=== PATIENT | male | born 1980 | race Hispanic/Latino ===

== ENCOUNTER 2023-10-08 02:45 | Emergency (ER) | payer SELFPAY ==
[2023-10-08] MEDS ORDERED: Ketorolac Tromethamine 30 MG (1 mL) VIAL ONE (03:28)
[2023-10-08] MEDS ORDERED: Lactated Ringer's 1,000 ML ONE (03:28)
[2023-10-08] MEDS ORDERED: Dicyclomine 20 MG/2 ML VIAL ONE (03:28)
[2023-10-08] MEDS ORDERED: Ondansetron PF 4 MG/2 ML Vial ONE (03:28)
[2023-10-08 03:40] LABS: #Basophils 0.1 thou/uL (0.0-0.2); #Eosinphils 0.3 thou/uL (0.0-0.7); #Monocytes 0.8 thou/uL (0.11-0.59); #Neutrophils 5.6 thou/uL (1.40-6.50); %Basophils 0.7 % (0.0-1.0); %Eosinophils 3.7 % (0.0-10.0); %Lymphocytes 12.9 % (21.0-51.0); %Monocytes 9.9 % (0.0-10.0); %Neutrophils 72.8 % (42.0-75.0); Hematocrit 47.8 % (42.0-52.0); Hemoglobin 15.9 g/dL (14.0-18.0); Mean Corpuscular HGB CONC 33.4 g/dL (32.0-36.0); Mean Corpuscular Hemoglobin 30.5 pg (27.0-31.0); Mean Corpuscular Volume 91.3 fl (78.0-98.0); Mean Platelet Volume 7.7 fL (7.4-10.4); Platelet Count 158 10x3/uL (130-400); RBC Distribution Width 11.4 % (11.5-14.5); Red Blood Cell (RBC) Count 5.23 mill/uL (4.70-6.10); White Blood Cell (WBC) Count 7.7 10x3/uL (4.8-10.8)
[2023-10-08 04:01] LABS: ALT (SGPT) 17 U/L (8-55); AST (SGOT) 19 U/L (5-34); Albumin 4.5 g/dL (3.5-5.0); Alkaline Phosphatase 103 U/L (40-110); Anion Gap 15 mmol/L (10-20); BUN (Urea Nitrogen) 22 mg/dL (8.9-20.6); Calc. Creatinine Clearance 0 mL/min (70-130); Calcium 9.2 mg/dL (7.8-10.44); Carbon Dioxide 24 mmol/L (22-29); Chloride 105 mmol/L (98-107); Estimated GFR 84; Globulin 2.7 g/dL (2.4-3.5); Glucose 101 mg/dL (70-105); Lipase 4 U/L (8-78); Magnesium 2.1 mg/dL (1.6-2.6); Potassium 3.1 mmol/L (3.5-5.1); Protein, Total 7.2 g/dL (6.0-8.3); Sodium 141 mmol/L (136-145)
[2023-10-08 04:45] LABS: Bilirubin Small (Negative); Blood, Urine Negative (Negative); Clarity Clear (Clear); Glucose, Urine (Dipstick) Negative (Negative); Ketone, Urine Negative (Negative); Leukocyte Negative (Negative); Nitrite Negative (Negative); Protein, Urine (Dipstick) Trace mg/dL (Neg-Trace); Specific Gravity, Urine 1.026 (1.002-1.036); Urobilinogen 0.2 mg/dL (Less than 2)
[2023-10-08 04:46] LABS: CAUTI Indications for Culture Pelvic or flank pain; Mucous/LPF 3+ LPF (<2+); RBC/HPF 0-3 HPF (0-3); Squamous Epithelial 0-3 HPF (0-3); WBC/HPF 0-3 HPF (0-3)
[2023-10-08 04:47] LABS: Urine Culture Reflex No No
[2023-10-08] MEDS ORDERED: Potassium Chloride 20 MEQ TAB ONE (05:48)
[2023-10-08] MEDS ORDERED: Iopamidol 370 76% 100 ML VIAL ONE (09:00)
== END 2023-10-08 06:25 | disposition home or self-care (01) ==
LOC: MADERS 02:45
DX: K52.9 Noninfective gastroenteritis and colitis, unspecified (principal); K76.89 Other specified diseases of liver; D12.5 Benign neoplasm of sigmoid colon; Z75.8 Other problems related to medical facilities and other health care
CPT/HCPCS: 74177; 80053; 81001; 83605; 83690; 83735; 85025; 93005; 94760; 96372; 96374; 96375; J1885; J2405; J7120; Q9967

== ENCOUNTER 2023-10-09 19:47 | Emergency (ER) | payer SELFPAY ==
[2023-10-09 21:27] LABS: #Basophils 0.1 thou/uL (0.0-0.2); #Eosinphils 0.5 thou/uL (0.0-0.7); #Lymphocytes 1.1 thou/uL (1.20-3.40); #Monocytes 0.8 thou/uL (0.11-0.59); #Neutrophils 6.1 thou/uL (1.40-6.50); %Basophils 0.6 % (0.0-1.0); %Eosinophils 5.9 % (0.0-10.0); %Lymphocytes 12.9 % (21.0-51.0); %Monocytes 9.6 % (0.0-10.0); Hematocrit 42.6 % (42.0-52.0); Mean Corpuscular HGB CONC 32.8 g/dL (32.0-36.0); Mean Corpuscular Volume 91.4 fl (78.0-98.0); Mean Platelet Volume 6.2 fL (7.4-10.4); Platelet Count 153 10x3/uL (130-400); RBC Distribution Width 11.6 % (11.5-14.5); Red Blood Cell (RBC) Count 4.66 mill/uL (4.70-6.10); White Blood Cell (WBC) Count 8.6 10x3/uL (4.8-10.8)
[2023-10-09] MEDS ORDERED: Ondansetron PF 4 MG/2 ML Vial ONE (21:40)
[2023-10-09] MEDS ORDERED: Sodium Chloride 0.9% 1,000 ML ONE (21:40)
[2023-10-09 21:48] LABS: ALT (SGPT) 15 U/L (8-55); AST (SGOT) 19 U/L (5-34); Albumin 3.8 g/dL (3.5-5.0); Alkaline Phosphatase 94 U/L (40-110); Anion Gap 13 mmol/L (10-20); BUN (Urea Nitrogen) 18 mg/dL (8.9-20.6); Bilirubin, Total 0.9 mg/dL (0.2-1.2); Calc. Creatinine Clearance 0 mL/min (70-130); Calcium 8.7 mg/dL (7.8-10.44); Carbon Dioxide 24 mmol/L (22-29); Chloride 104 mmol/L (98-107); Estimated GFR 94; Globulin 2.3 g/dL (2.4-3.5); Glucose 88 mg/dL (70-105); Lipase 5 U/L (8-78); Potassium 3.4 mmol/L (3.5-5.1); Protein, Total 6.1 g/dL (6.0-8.3); Sodium 138 mmol/L (136-145)
== END 2023-10-10 02:05 | disposition short-term general hospital (02) ==
LOC: MADERS 19:47
DX: C18.7 Malignant neoplasm of sigmoid colon (principal); C78.7 Secondary malignant neoplasm of liver and intrahepatic bile duct; R19.7 Diarrhea, unspecified
CPT/HCPCS: 36415; 80053; 83690; 85025; 96374; J2405; J7050